=== PATIENT | female | born 1965 | race Caucasian/White ===

== ENCOUNTER → 2017-02-01 09:16 | Outpatient (CLI) | payer OTHER | END | disposition home or self-care (01) | LOC: D.RT 09:00 | DX: Z02.71 Encounter for disability determination (principal) ==

== ENCOUNTER → 2017-03-17 12:50 | Outpatient (CLI) | payer OTHER | END | disposition home or self-care (01) | LOC: D.RT 12:50 | DX: Z02.71 Encounter for disability determination (principal) ==

== ENCOUNTER 2017-07-27 11:49 | Inpatient (IN) | payer MEDICAID ==
[2017-07-27 12:52] LABS: BASOPHILS 0.2 % (0-2); EOSINOPHILS 0.5 % (0-7); HEMATOCRIT 41.2 % (36.0-48.0); HEMOGLOBIN 14.4 g/dL (12-16); IMMATURE GRANULOCYTES 0.1 % (0-5); LYMPHOCYTES 23.1 % (15-50); MCH 30.8 pg (26.0-34.0); MCV 88.2 fL (80.0-100.0); MEAN PLATELET VOLUME 8.5 fL (7.4-10.4); MONOCYTES 6.9 % (2-11); NEUTROPHILS 69.2 % (40-80); PLATELET COUNT 310 10x3/uL (130-400); RBC 4.67 10x6/uL (4.00-5.40); RDW 15.2 % (11.5-14.5); WBC 8.4 10x3/uL (4.8-10.8)
[2017-07-27 13:08] LABS: ALBUMIN 3.6 g/dL (3.4-5.0); ALKALINE PHOSPHATASE 98 U/L (46-116); ALT (SGPT) 14 U/L (10-68); BILIRUBIN - TOTAL 0.14 mg/dL (0.2-1.3); CALCIUM 9.1 mg/dL (8.5-10.1); CARBON DIOXIDE 34.4 mmol/L (21.0-32.0); CREATININE - SERUM 0.7 mg/dL (0.6-1.3); GLUCOSE 89 mg/dL (74-106); PROTEIN - SERUM 7.3 g/dL (6.4-8.2); UREA NITROGEN 4 mg/dL (7-18); eGFR NON AFRICAN AMERICAN > 90 mL/min (90-120)
[2017-07-27 13:32] LABS: CALC OSMOLALITY 265 mosm/kg (275-300); CHLORIDE - SERUM 93 mmol/L (98-107); SODIUM 135 mmol/L (136-145)
[2017-07-27 15:04] LABS: MAGNESIUM - SERUM 1.7 mg/dL (1.8-2.4)
[2017-07-27 15:31] LABS: APPEARANCE CLEAR (CLEAR); BILIRUBIN NEGATIVE (NEGATIVE); COLOR YELLOW (YELLOW); GLUCOSE NEGATIVE (NEGATIVE); KETONE NEGATIVE (NEGATIVE); NITRITE NEGATIVE (NEGATIVE); PROTEIN NEGATIVE (NEGATIVE); UROBILINOGEN NORMAL (NORMAL)
[2017-07-27 21:59] VITALS: BP 122/59; BMI 25.6
--- NOTE | 2017-07-27 22:13 | NUR ---
RECIEVED PT FROM ER VIA WHEELCHAIR. ASSESSMENT AND HISTORY COMPLETED AT THIS TIME.
[2017-07-27] MEDS ORDERED: LIPITOR80 MG PO (22:28)
[2017-07-27] MEDS ORDERED: PHENYTEK200 MG PO (22:36)
[2017-07-27] MEDS ORDERED: LEXAPRO20 MG PO (22:37)
[2017-07-27] MEDS ORDERED: GLUCOPHAGE500 MG PO (22:38)
[2017-07-27] MEDS ORDERED: LOPRESSOR25 MG PO (22:39)
[2017-07-27] MEDS ORDERED: LISINOPRIL-HCTZ1 T11 PO (22:42)
[2017-07-27] MEDS ORDERED: SPIRIVA18 MCG INH (22:43)
--- NOTE | 2017-07-28 02:10 | NUR ---
POTASSIUM RIDER COMPLETE. IV PATENT WITH BLOOD RETURN. NS KCL40 MEQ @ 75ML/HR. DENIES ANY OTHER NEEDS AT THIS TIME. WILL CONTINUE WITH PLAN OF CARE.
[2017-07-28 04:00] VITALS: BP 133/74
--- NOTE | 2017-07-28 06:01 | NUR ---
PT RESTING WITH EYES CLOSED. RESPIRATIONS EQUAL AND UNLABORED. NO DISTRESS NOTED. SPOUSE AT BEDSIDE, CALL LIGHT IN REACH.
[2017-07-28 06:03] LABS: BASOPHILS 0.3 % (0-2); EOSINOPHILS 0.8 % (0-7); HEMATOCRIT 37.1 % (36.0-48.0); HEMOGLOBIN 12.9 g/dL (12-16); IMMATURE GRANULOCYTES 0.2 % (0-5); LYMPHOCYTES 29.2 % (15-50); MCH 30.8 pg (26.0-34.0); MCHC 34.8 g/dL (31.0-37.0); MCV 88.5 fL (80.0-100.0); MEAN PLATELET VOLUME 8.5 fL (7.4-10.4); MONOCYTES 9.5 % (2-11); PLATELET COUNT 304 10x3/uL (130-400); RBC 4.19 10x6/uL (4.00-5.40); RDW 15.3 % (11.5-14.5)
[2017-07-28 06:10] LABS: ALBUMIN 3.2 g/dL (3.4-5.0); ALKALINE PHOSPHATASE 90 U/L (46-116); ALT (SGPT) 12 U/L (10-68); BILIRUBIN - TOTAL 0.14 mg/dL (0.2-1.3); CALC OSMOLALITY 273 mosm/kg (275-300); CALCIUM 8.7 mg/dL (8.5-10.1); CARBON DIOXIDE 34.8 mmol/L (21.0-32.0); CHLORIDE - SERUM 96 mmol/L (98-107); GLUCOSE 86 mg/dL (74-106); PROTEIN - SERUM 6.1 g/dL (6.4-8.2); SODIUM 139 mmol/L (136-145); UREA NITROGEN 5 mg/dL (7-18)
[2017-07-28 06:12] LABS: CREATININE - SERUM 0.5 mg/dL (0.6-1.3); eGFR NON AFRICAN AMERICAN > 90 mL/min (90-120)
[2017-07-28 06:13] LABS: POTASSIUM - SERUM 2.6 mmol/L (3.5-5.1)
[2017-07-28 06:20] LABS: WBC 6.1 10x3/uL (4.8-10.8)
--- NOTE | 2017-07-28 07:14 | NUR ---
REPORT RECEIVED FROM SHEET METAL OPERATOR NURSE. CALL LIGHT IN REACH.
--- NOTE | 2017-07-28 08:35 | NUR ---
ASSESSMENT COMPLETED. WAITING ON MD TO COME TO SPEAK WITH HER. DENIES OTHER NEEDS. CALL LIGHT IN REACH. WILL CONTINUE WITH PLAN OF CARE.
[2017-07-28 08:53] VITALS: BP 105/63
--- NOTE | 2017-07-28 10:07 | NUR ---
C/O ABDOMINAL PAIN AND HEADACHE. WILL GIVE TYLENOL W/CODEINE INSTEAD OF MORPHINE FOR THE HEADACHE. ALSO GAVE DILANTIN AND METOPROLOL WITH SIP OF WATER. FAMILY AT BEDSIDE. CALL LIGHT IN REACH.
--- NOTE | 2017-07-28 11:20 | NUR ---
PATIENT ALERT IN BED WITH FAMILY PRESENT. NO SIGNS OF DISTRESS NOTED. NO NEEDS VOICED. SIDE RAILS UP X2. BED IN LOW POSITION. CALL LIGHT IN REACH.
[2017-07-28 12:21] VITALS: BP 112/65
--- NOTE | 2017-07-28 12:59 | NUR ---
FSBS 88. DR. MARROQUIN ON FLOOR AT THIS TIME. CALL LIGHT IN REACH.
[2017-07-28 14:16] VITALS: BMI 25.5
--- NOTE | 2017-07-28 14:21 | NUR ---
MORPHINE 2 MG SIVP PER PATIENT REQUEST FOR PAIN OF 3 TO ABDOMEN. ALSO ADMINISTERED ALL OTHER ORAL MEDS AND LOVENOX THAT WAS ORDERED.
[2017-07-28 15:39] VITALS: BP 113/59
--- NOTE | 2017-07-28 16:00 | NUR ---
RESTING WITH EYES CLOSED. RESP EVEN AND UNLABORED. CALL LIGHT IN REACH.
--- NOTE | 2017-07-28 17:33 | NUR ---
BLOOD SUGAR IS 101 SO NO COVERAGE REQUIRED. CALL LIGHT IN REACH.
--- NOTE | 2017-07-28 18:04 | NUR ---
NO CHANGES IN INITIAL ASSESSMENT. CALL LIGHT IN REACH. WILL CONTINUE WITH PLAN OF CARE.
[2017-07-28 20:00] VITALS: BP 110/63
--- NOTE | 2017-07-28 20:00 | NUR ---
ASSESSMENT PER FLOWSHEET. O2 ON 2L/M PER NC. BEDSIDE UPDRAFT TX BEING GIVEN PER RT TECH. IV PATENT RT WRIST OF NS W/40MEQ KCL INFUSING AT 50CC'S/HR K+ RIDER INFUSING. SITE CLEAR. TELM. SHOWS SR WITH HR 65.
--- NOTE | 2017-07-28 20:45 | NUR ---
K+ RIDER COMPLETED AND TURNED OFF.
--- NOTE | 2017-07-28 21:15 | NUR ---
MEDS GIVEN PER MAR. SEVM=861. NO COVERAGE NEEDED.
--- NOTE | 2017-07-28 23:22 | NUR ---
K+ LEVEL=2.9. 20MEQ KCL PO GIVEN PER ELECTROLYTE PROTOCAL.
[2017-07-29] VITALS: BP 105/67
--- NOTE | 2017-07-29 01:20 | NUR ---
SECOND DOSE OF K+ 20 MEQ PO GIVEN PER ELECTROLYTE PROTOCAL.
--- NOTE | 2017-07-29 03:28 | NUR ---
3RD DOSE OF K+ 20MEQ PO GIVEN DPER ELECTROLYTE PROTOCAL.
[2017-07-29 04:00] VITALS: BP 115/73
[2017-07-29 05:41] LABS: BASOPHILS 0.4 % (0-2); EOSINOPHILS 1.3 % (0-7); HEMATOCRIT 36.8 % (36.0-48.0); HEMOGLOBIN 12.5 g/dL (12-16); IMMATURE GRANULOCYTES 0.2 % (0-5); LYMPHOCYTES 26.2 % (15-50); MCH 30.6 pg (26.0-34.0); MEAN PLATELET VOLUME 8.6 fL (7.4-10.4); MONOCYTES 8.4 % (2-11); NEUTROPHILS 63.5 % (40-80); PLATELET COUNT 301 10x3/uL (130-400); RBC 4.09 10x6/uL (4.00-5.40); RDW 15.8 % (11.5-14.5); WBC 5.6 10x3/uL (4.8-10.8)
[2017-07-29 06:13] LABS: ALKALINE PHOSPHATASE 86 U/L (46-116); ALT (SGPT) 13 U/L (10-68); CALC OSMOLALITY 273 mosm/kg (275-300); CALCIUM 8.4 mg/dL (8.5-10.1); CARBON DIOXIDE 30.7 mmol/L (21.0-32.0); CHLORIDE - SERUM 102 mmol/L (98-107); CREATININE - SERUM 0.6 mg/dL (0.6-1.3); GLUCOSE 90 mg/dL (74-106); PROTEIN - SERUM 6.2 g/dL (6.4-8.2); SODIUM 138 mmol/L (136-145); UREA NITROGEN 6 mg/dL (7-18); eGFR NON AFRICAN AMERICAN > 90 mL/min (90-120)
[2017-07-29 06:15] LABS: POTASSIUM - SERUM 3.8 mmol/L (3.5-5.1)
--- NOTE | 2017-07-29 07:27 | NUR ---
REPORT RECEIVED FROM SCUBA DIVING TEACHER NURSE. CALL LIGHT IN REACH.
[2017-07-29 09:01] VITALS: BP 148/74
--- NOTE | 2017-07-29 09:10 | NUR ---
ASSESSMENT COMPLETED. PAIN PILL WITH AM MEDS PER PATIENT REQUEST. CALL LIGHT IN REACH. FAMILY IN ROOM. WILL CONTINUE WITH PLAN OF CARE.
--- NOTE | 2017-07-29 11:36 | NUR ---
MORPHINE 2 MG SIVP PER C/O PAIN OF 6. FAMILY IN ROOM. CALL LIGHT IN REACH.
[2017-07-29] MEDS ORDERED: LIPITOR80 MG PO (12:18)
[2017-07-29] MEDS ORDERED: K-TAB10 MEQ PO (12:19)
[2017-07-29 12:22] VITALS: BP 139/66
--- NOTE | 2017-07-29 12:31 | NUR ---
PT ASLEEP WITH FAMILY AT BEDSIDE. NO VISABLE SIGNS OF PAIN OR DISCOMFORT. BED IN LOW POSITION AND CALL LIGHT WITHIN REACH. WILL CONTINUE TO MONITOR.
--- NOTE | 2017-07-29 13:01 | NUR ---
IV DC'D WITH TIP INTACT. TELEMETRY REMOVED.
--- NOTE | 2017-07-29 13:31 | NUR ---
DC INSTRUCTIONS EXPLAINED TO PATIENT. VERBALIZED UNDERSTANDING.
--- NOTE | 2017-07-29 13:32 | NUR ---
DC'D TO VEHICLE VIA WC WITH FAMILY.
== END 2017-07-29 13:32 | disposition home or self-care (01) | DRG 641 ==
LOC: D.ER 11:49 → D.MS 18:06
PROVIDERS: Emergency Medicine; Family Medicine; Physician Assistant; ADMIT Family Medicine
DX: E87.6 Hypokalemia (principal); R19.7 Diarrhea, unspecified; K83.8 Other specified diseases of biliary tract; G40.909 Epilepsy, unspecified, not intractable, without status epilepticus; E11.9 Type 2 diabetes mellitus without complications; I10 Essential (primary) hypertension